=== PATIENT | male | born 1985 | race Caucasian/White ===

== ENCOUNTER 2017-04-28 10:13 | Emergency (ER) | payer BC ==
[2017-04-28] MEDS ORDERED: Morphine 4 MG/ML Syringe IM ONE (10:43)
[2017-04-28] MEDS ORDERED: Ketorolac 60 MG/2 ML SDV IM ONE (10:45)
[2017-04-28] MEDS ORDERED: Morphine 4 MG/ML Syringe IVPUSH ONE (10:49)
[2017-04-28] MEDS ORDERED: Ondansetron 4 MG/2 ML SDV IVPUSH ONE (10:49)
[2017-04-28] MEDS ORDERED: Ketorolac 30 MG/ML SDV IVPUSH ONE (10:49)
[2017-04-28] MEDS ORDERED: Sodium Chloride 0.9% 10 ML Syringe FLUSH PRN (10:50)
[2017-04-28] MEDS ORDERED: Silver Sulfadiazine 1% Crm 400 GM Jar TOP SCH ×3 (11:00→21:00)
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
[2017-04-28 14:51] VITALS: BP 150/94
== END 2017-04-28 11:50 | disposition home or self-care (01) ==
LOC: FB.ED 10:13
DX: T24.201A Burn of second degree of unspecified site of right lower limb, except ankle and foot, initial encounter (principal); T22.20XA Burn of second degree of shoulder and upper limb, except wrist and hand, unspecified site, initial encounter; S00.91XA Abrasion of unspecified part of head, initial encounter; X11.8XXA Contact with other hot tap-water, initial encounter
CPT/HCPCS: 16025; 96374; 96375; 99283; A4217; A9270; J1885; J2270; J2405